=== PATIENT | male | born 1980 | race Caucasian/White ===

== ENCOUNTER 2017-04-11 17:26 | Emergency (ER) | payer OTHER ==
[~2017-04-11 17:26] MED LIST: CHANTIX1 MG PO; HYCET 7.5 MG-3473 ML PO; HYDROCHLOROTHIA25 M2 PO; IBUPROFEN 800800 M1 PO; LISINOPRIL20 MG PO; MIRTAZAPINE45 MG PO; NAPROSYN500 MG PO; NITROGLYCERIN0.4 MG SUBLING; NORCO 10-325 T1 EACH PO; NORCO 5-325 TA1 EACH; NORCO 5-325 TA1 EACH PO; PRINIVIL10 MG PO
== END 2017-04-11 18:24 | disposition left against medical advice (07) ==
LOC: ER 17:26
DX: Z53.21 Procedure and treatment not carried out due to patient leaving prior to being seen by health care provider (principal)